=== PATIENT | male | born 1950 | race Caucasian/White ===

== ENCOUNTER → 2018-10-07 17:07 | Outpatient (REF) | payer MEDICARE, SELFPAY ==
[2018-10-07 17:15] LABS: Prothrombin Time 11.1 SECONDS (10.1-12.7)
[2018-10-07 17:17] LABS: PTT Partial Thromboplastin Tim 34 SECONDS (26.4-36.2)
== END ==
LOC: LAB 17:07
PROVIDERS: Visit Provider Internal Medicine
DX: Z01.818 Encounter for other preprocedural examination (principal)
CPT/HCPCS: 85610; 85730

== ENCOUNTER 2021-07-05 09:30 | Emergency (ER) | payer MEDICARE, SELFPAY ==
[2021-07-05] VITALS (8 sets, daily range): BP systolic 142–173; BP diastolic 64–87; PULSE 66–84; RESP 24; TEMP 36.1; O2SAT 97–100; BMI 38.5
--- NOTE | 2021-07-05 10:27 | ED_ITS ---
HPI - General Adult General Chief complaint: Upper Respiratory Symptoms Stated complaint: covid poss //day 12 Time Seen by Provider: 07/05/21 10:08 Source: patient Mode of arrival: Ambulatory Limitations: no limitations History of Present Illness HPI narrative: Patient is a 70-year-old male who is here for evaluation of vomiting and diarrhea and generally not feeling very well. Approximately 12 days ago he was diagnosed with COVID-19. He is unvaccinated. Is currently taking vitamins and also ivermectin. He states he has had problems eating because of the nausea. Has had some loose stools. No shortness of breath but has been having a cough. Does have a with checking his saturations at home and he states that his saturations fall been above 95%. Related Data Home Medications Medication Instructions Recorded Confirmed Oxycodone (Oxycontin) 0 PO * DOSE/FREQUENCY #0 09/12/07 Previous Rx's Medication Instructions Recorded ondansetron 4 mg disintegrating 4 mg PO Q6H PRN #14 tab 07/05/21 tablet Allergies Allergy/AdvReac Type Severity Reaction Status Date / Time No Known Drug Allergies Allergy Verified 07/05/21 10:42 Review of Systems Constitutional Constitutional: Reports chills, Reports fatigue and Reports fever(s) Cardiovascular Cardiovascular: Reports as per HPI and Reports system reviewed and no additional complaints, except as documented Respiratory Respiratory: Reports as per HPI and Reports system reviewed and no additional complaints, except as documented Gastrointestinal Gastrointestinal: Reports as per HPI Genitourinary Genitourinary: Reports system reviewed and no additional complaints, except as documented Integumentary/Breasts Skin/Breast: Reports system reviewed and no additional complaints, except as documented Endocrine Endocrine: Reports fatigue Hematologic/Lymphatic On Anticoagulants: No Patient History Medical History Patient denies medical problems Social History marital status: household members: spouse lives independently: Yes Exam Initial Vital Signs Initial Vital Signs: Vital Signs Temperature 97.0 F L 07/05/21 09:41 Pulse Rate 80 07/05/21 09:41 Respiratory Rate 24 07/05/21 09:41 Blood Pressure 173/87 H 07/05/21 09:41 Pulse Oximetry 99 07/05/21 09:41 Const General: cooperative, comfortable and well developed [facility] Head: normal to inspection Resp Effort & Inspection: normal respiratory effort Auscultation: clear to auscultation bilaterally Cardio Rate: regular rate Rhythm: regular rhythm GI Inspection: normal to inspection Skin General: no rashes or lesions noted Neuro General: patient alert, patient awake and moves all extremities Extrem General: normal to inspection and capillary refill normal Psych Appearance: grossly normal and well kempt Course Orders Ordered: Discontinued Medications Sodium Chloride (Normal Saline 0.9%) 1,000 mls @ 1,000 mls/hr IV BOLUS ONE Stop: 07/05/21 11:27 Last Admin: 07/05/21 10:50 Dose: 1,000 mls/hr Documented by: DAMIAN Ondansetron HCl (Ondansetron 4 Mg/2 Ml Inj) 4 mg IV NOW ONE Stop: 07/05/21 10:29 Last Admin: 07/05/21 10:50 Dose: 4 mg Documented by: DAMIAN Vital Signs Vital signs: Vital Signs - 8 hr 07/05/21 09:41 07/05/21 09:47 07/05/21 10:00 Temperature 97.0 F L Pulse Rate 80 84 82 Respiratory Rate 24 Blood Pressure 173/87 H 173/87 H Pulse Oximetry 99 98 97 07/05/21 11:42 07/05/21 11:43 07/05/21 12:00 Temperature Pulse Rate 70 67 67 Respiratory Rate Blood Pressure 162/75 H Pulse Oximetry 98 100 Medical Decision Making MDM Narrative Medical decision making narrative: Patient is nontoxic. Not hypotensive. Is COVID positive. Has had symptoms for the past 12 days. No respiratory distress. Not hypoxic. Was given fluids however the patient stop the fluid on his own stating that he is ready to go home. Was sent home with Crescencio. He was given return precautions. He expressed understanding and agreement. Discharge Plan Departure Patient Disposition: Home Clinical Impression: COVID-19 Instructions: Coronavirus Disease 2019 Activity Restrictions/Additional Instructions: I do recommend that you stop taking the ivermectin. It is most likely not helping any of your symptoms and could be causing some of the nausea and abdominal discomfort. Use the nausea medicine as needed. Contact your primary doctor for follow-up. Return to the emergency department for any new or worsening symptoms Prescriptions: New ondansetron 4 mg tablet,disintegrating 4 mg PO Q6H PRN (Reason: nausea and vomiting) Qty: 14 0RF No Action Oxycodone (Oxycontin) 0 PO * DOSE/FREQUENCY Qty: 0 0RF
[2021-07-05] MEDS: ONDANSETRON 4 MG/2 ML INJ IV (10:50)
[2021-07-05] MEDS: SODIUM CHLORIDE 0.9% 1,000 ML 1000 ML IV (10:50)
== END 2021-07-05 13:18 | disposition home or self-care (01) ==
PROVIDERS: Emergency Provider Emergency Medicine
DX: U07.1 COVID-19 (principal); R11.2 Nausea with vomiting, unspecified
CPT/HCPCS: 36415; 96361; 96374; 99284; J2405

== ENCOUNTER → 2021-07-11 12:07 | Outpatient (ROUT) | payer MEDICARE, SELFPAY ==
[2021-07-11 13:01] LABS: COVID19 -Nasal RAPID POSITIVE (Negative)
== END ==
PROVIDERS: Visit Provider Physician Assistant
DX: Z20.822 Contact with and (suspected) exposure to COVID-19 (principal)
CPT/HCPCS: 87635

== ENCOUNTER → 2021-08-21 12:02 | Outpatient (ROUT) | payer MEDICARE, SELFPAY ==
[2021-08-21 13:20] LABS: COVID19 -Nasal RAPID Negative (Negative)
== END ==
PROVIDERS: Visit Provider Physician Assistant
DX: Z20.822 Contact with and (suspected) exposure to COVID-19 (principal)
CPT/HCPCS: 87635

== ENCOUNTER → 2021-10-02 11:49 | Outpatient (ROUT) | payer MEDICARE, SELFPAY ==
[2021-10-02 12:23] LABS: COVID19 -Nasal RAPID Negative (Negative)
== END ==
PROVIDERS: Visit Provider Physician Assistant
DX: Z20.822 Contact with and (suspected) exposure to COVID-19 (principal)
CPT/HCPCS: 87635

== ENCOUNTER → 2021-11-04 13:00 | Outpatient (CLI) | payer MEDICARE, SELFPAY ==
--- NOTE | 2021-11-04 | DI.RAD.S_ITS ---
PROCEDURE: XR THORACIC SPINE 3V INDICATIONS: Pain in thoracic spine TECHNIQUE: 3 views of the thoracic spine were acquired. COMPARISON: None. FINDINGS: Bones: No fractures or subluxation. There is a minimal leftward curvature of the thoracic spine centered at T11. No suspicious bony lesions. 12 pairs of ribs are noted, and appear intact where visualized. Soft tissues: No paravertebral stripe thickening. IMPRESSION: 1. No fracture or subluxation. 2. Minimal leftward curvature of the lower thoracic spine. Dictated by: Yared Bonner M.D. on 11/04/2021 at 16:26 Approved by: Yared Bonner M.D. on 11/04/2021 at 16:27
== END ==
PROVIDERS: PCP Physician Assistant Medical; Referring Provider Chiropractor; Visit Provider Chiropractor
DX: M54.6 Pain in thoracic spine (principal)
CPT/HCPCS: 72072

== ENCOUNTER → 2023-01-01 07:02 | Outpatient (CLI) | payer MEDICARE, SELFPAY ==
[2023-01-01 07:59] LABS: Add Manual Diff / Slide Review NO; Basophils Absolute Auto 0 /uL (0-100); Basophils Percent Auto 0.5 % (0-2); Eosinophils Absolute Auto 200 /uL (0-450); Hematocrit 44.6 % (41-53); Hemoglobin 15.2 g/dL (13.5-17.5); Lymphocytes Absolute Auto 1900 /uL (1100-4500); Lymphocytes Percent Auto 35.6 % (25-40); Mean Corpuscular Volume 88.2 fL (80-100); Monocytes Absolute Auto 500 /uL (0-900); Monocytes Percent Auto 8.6 % (3-14); Neutrophils Absolute Auto 2800 /uL (1500-7000); Neutrophils Percent Auto 52.3 % (50-75); Platelet Count 135 X10^3/uL (150-400); Red Blood Cell Count 5.06 X10^6/uL (4.5-5.9); Red Cell Distribution Width 13.9 % (11.6-14.8); White Blood Cell Count 5.3 X10^3/uL (4.5-11.0)
[2023-01-01 08:49] LABS: Alanine Aminotransferase 24 IU/L (<50); Albumin 4.2 g/dL (3.5-5.0); Albumin Globulin Ratio 1.4 (1.0-2.8); Alkaline Phosphatase 66 U/L (38-126); Aspartate Aminotransferase 24 IU/L (17-59); BUN Creatinine Ratio 16.4 (6-22); Bilirubin Total 0.6 mg/dL (0.2-1.3); Blood Urea Nitrogen 12 mg/dL (9-20); C-Reactive Protein Quant 0.5 mg/dL (<1.0); Calcium 9.3 mg/dL (8.4-10.2); Carbon Dioxide 26 mmol/L (22-32); Chloride 106 mmol/L (98-107); Cholesterol 214 mg/dL (140-199); Estimated Glomerular Filt Rate > 60 mL/min (>60); Globulin 3.1 g/dL (1.7-4.1); Glucose 116 mg/dL (80-110); HDL Cholesterol 44 mg/dL (40-60); HEMOLYSIS < 15 (0-50); LDL Cholesterol Calculated 151 mg/dL (<100); Potassium 3.8 mmol/L (3.4-5.1); Sodium 139 mmol/L (137-145); Total Protein 7.3 g/dL (6.3-8.2); Triglycerides 94 mg/dL (35-150)
[2023-01-01 09:02] LABS: Free T3, Triiodothyronine Free 4.68 pg/mL (2.77-5.27)
[2023-01-01 09:16] LABS: Thyroid Stimulating Hormone 2.67 uIU/mL (0.47-4.68)
[2023-01-01 09:30] LABS: Vitamin B12 250 pg/mL (239-931)
[2023-01-01 09:56] LABS: Estradiol, Total 30.3 pg/mL
[2023-01-02 06:47] LABS: Thyroid Peroxidase Antibodies <9 IU/mL (0-34)
[2023-01-02 22:38] LABS: Anti Thyroglobulin Antibody <1.0 IU/mL (0.0-0.9)
[2023-01-08 09:13] LABS: Percent Free Testosterone 0.89 % (1.50-4.20); Testosterone Total 550.8 ng/dL (264.0-916.0)
[2023-01-20 13:37] LABS: Triiodothyronine T3 Reverse 22.9
== END ==
PROVIDERS: PCP Family Medicine; Referring Provider Nurse Practitioner Family; Visit Provider Nurse Practitioner Family
DX: E29.1 Testicular hypofunction (principal); I10 Essential (primary) hypertension; Z86.39 Personal history of other endocrine, nutritional and metabolic disease; E34.9 Endocrine disorder, unspecified; R68.89 Other general symptoms and signs; R79.82 Elevated C-reactive protein (CRP)
CPT/HCPCS: 36415; 80053; 80061; 82607; 82670; 84402; 84403; 84436; 84443; 84481; 84482; 85025; 86140; 86376; 86800

== ENCOUNTER → 2023-04-23 16:27 | Outpatient (CLI) | payer MEDICARE, SELFPAY ==
--- NOTE | 2023-04-23 16:29 | DI.RAD.S_ITS ---
PROCEDURE: XR LUMBAR SPINE 2-3V INDICATIONS: Low back pain TECHNIQUE: 3 views of the lumbar spine were acquired. COMPARISON: [facility], CR, L-SPINE 2-3 VIEWS, 08/14/2017, 13:09. [facility], CR, L-SPINE 2-3 VIEWS, 05/13/2013, 13:39. FINDINGS: Bones: 5 [id number] vertebrae are present. There is normal bony alignment. No vertebral body compression fractures. No suspicious bony lesions. Mild degenerative disc changes throughout the lumbar spine. Mild L4-L5 and L5-S1 facet arthropathy. Soft tissues: Overlying bowel gas pattern is normal. No suspicious soft tissue calcifications. IMPRESSION: 1. Multilevel degenerative disc disease. 2. Multilevel facet arthropathy. 3. No fracture. No acute osseous lesion. If symptoms and/or clinical suspicion for pathology persists, evaluation with MRI should be considered for further assessment. Dictated by: Georgia Alvarez MD, PhD on 04/23/2023 at 16:42 Approved by: Georgia Alvarez MD, PhD on 04/23/2023 at 16:44
== END ==
PROVIDERS: PCP Family Medicine; Referring Provider Chiropractor; Visit Provider Chiropractor
DX: M51.36 Other intervertebral disc degeneration, lumbar region (principal); M47.816 Spondylosis without myelopathy or radiculopathy, lumbar region; M47.817 Spondylosis without myelopathy or radiculopathy, lumbosacral region; M54.50 Low back pain, unspecified
CPT/HCPCS: 72100

== ENCOUNTER → 2023-05-10 15:26 | Outpatient (CLI) | payer MEDICARE, SELFPAY ==
--- NOTE | 2023-05-10 | DI.RAD.S_ITS ---
PROCEDURE: XR KNEE LT 3V INDICATIONS: LFT KNEE PAIN TECHNIQUE: 3 views of the knee were acquired. COMPARISON: [facility], , KNEE 1 VIEW BILATERAL, 05/13/2013, 13:39. FINDINGS: Bones: No fractures or dislocations. No suspicious bony lesions. Mild tricompartmental osteoarthritic changes with mild joint space narrowing and marginal spurring. Soft tissues: No joint effusion. No suspicious soft tissue calcifications. IMPRESSION: Mild tricompartmental osteoarthritic changes. No acute osseous abnormalities. Dictated by: Keanu Greenwood M.D. on 05/10/2023 at 17:00 Approved by: Keanu Greenwood M.D. on 05/10/2023 at 17:01
== END ==
PROVIDERS: PCP Family Medicine; Referring Provider Chiropractor; Visit Provider Chiropractor
DX: M25.562 Pain in left knee (principal)
CPT/HCPCS: 73562

== ENCOUNTER → 2023-11-23 12:51 | Outpatient (CLI) | payer MEDICARE, SELFPAY ==
--- NOTE | 2023-11-23 12:56 | DI.RAD.S_ITS ---
PROCEDURE: XR SHOULDER LT MIN 2V INDICATIONS: NECK PAIN TECHNIQUE: 3 views of the shoulder were acquired. COMPARISON: None. FINDINGS: Bones: No fractures or dislocations. Mild acromioclavicular joint and glenohumeral joint osteoarthritic changes are seen. No suspicious bony lesions. Visualized ribs appear intact. Soft tissues: No suspicious soft tissue calcifications. IMPRESSION: No acute shoulder fracture or dislocation. Mild acromioclavicular joint and glenohumeral joint osteoarthritis. Dictated by: Angel Luis Campa M.D. on 11/23/2023 at 15:10 Approved by: Angel Luis Campa M.D. on 11/23/2023 at 15:10
--- NOTE | 2023-11-23 12:56 | DI.RAD.S_ITS ---
PROCEDURE: XR CERVICAL SPINE 2V OR 3V INDICATIONS: LEFT SHOULDER PAIN TECHNIQUE: 3 view(s) of the cervical spine were acquired. COMPARISON: None. FINDINGS: Bones: No fractures or dislocations to the T1 level. Straightening of normal cervical lordosis is seen. Degenerative endplate changes are noted at C4-5 and C5-6 levels. Bilateral facet hypertrophic changes and loss of disc height at these levels also noted. The lateral masses of C1 appear intact on the odontoid view. No suspicious bony lesions. Soft tissues: No prevertebral soft tissue swelling. IMPRESSION: [id number] degenerative disc disease at C4-5 and C5-6 levels. No acute cervical spine fracture or dislocation. Dictated by: Angel Luis Campa M.D. on 11/23/2023 at 14:54 Approved by: Angel Luis Campa M.D. on 11/23/2023 at 15:10
== END ==
PROVIDERS: PCP Family Medicine; Referring Provider Chiropractor; Visit Provider Chiropractor
DX: M19.012 Primary osteoarthritis, left shoulder (principal); M50.31 Other cervical disc degeneration, high cervical region; M25.512 Pain in left shoulder
CPT/HCPCS: 72040; 73030

== ENCOUNTER → 2025-07-25 16:32 | Outpatient (CLI) | payer MEDICARE, OTHER, SELFPAY ==
--- NOTE | 2025-07-25 16:35 | DI.RAD.S_ITS ---
PROCEDURE: XR CERVICAL SPINE 2V OR 3V INDICATIONS: NECK PAIN TECHNIQUE: 3 view(s) of the cervical spine were acquired. COMPARISON: [facility], CR, XR CERVICAL SPINE 2V OR 3V, 11/23/2023, 13:12. FINDINGS: Bones: No fractures or dislocations to the superior endplate of T1 level. The lateral masses of C1 appear intact on the odontoid view. No suspicious bony lesions. Persistent straightening of normal cervical lordosis with slight gentle reversal likely related to positioning and/or concurrent muscle spasms. As before, degenerative changes are most pronounced at C4-5 and C5-6. No acute compression fracture. Soft tissues: No prevertebral soft tissue swelling. IMPRESSION: Cervical spine without acute osseous abnormalities. Straightening of cervical lordosis likely related to positioning and/or concurrent muscle spasms. Multilevel cervical spondylosis most severe at C4-5 and C5-6. Dictated by: Nolberto Oshea M.D. on 07/26/2025 at 21:43 Approved by: Nolberto Oshea M.D. on 07/26/2025 at 21:44
== END ==
PROVIDERS: PCP Family Medicine; Referring Provider Chiropractor; Visit Provider Chiropractor
DX: M47.812 Spondylosis without myelopathy or radiculopathy, cervical region (principal); M54.2 Cervicalgia
CPT/HCPCS: 72040